=== PATIENT | female | born 1995 | race Caucasian/White ===

== ENCOUNTER → 2021-02-18 14:15 | Outpatient (CLI) | payer SELFPAY | PROVIDERS: Visit Provider Obstetrics & Gynecology | DX: Z12.4 Encounter for screening for malignant neoplasm of cervix (principal) | CPT/HCPCS: 88175; G0145 ==

== ENCOUNTER 2021-12-09 09:30 | Outpatient (CLI) | payer SELFPAY ==
[2021-12-11 22:07] LABS: Chlamydia By Nucleic Acid AMP Negative (Negative)
[2021-12-12 09:29] LABS: Gonococcus By Nucleic Acid AMP Negative (Negative)
== END 2021-12-09 23:59 | disposition home or self-care (01) ==
LOC: LABSPEC 12-10 08:58
PROVIDERS: Visit Provider Obstetrics & Gynecology
DX: Z34.81 Encounter for supervision of other normal pregnancy, first trimester (principal)
CPT/HCPCS: 87491; 87591

== ENCOUNTER → 2022-02-04 | Outpatient (CLI) | payer SELFPAY ==
[2022-02-04 17:15] LABS: Absolute Lymphocyte Count 2.51 X10^3/uL (0.83-4.51); Absolute Neutrophil Count 4.3 X10^3/uL (2.0-7.7); Basophil# 0.05 X10^3/uL; Basophil% 0.7 % (0-1); Eosinophil# 0.04 X10^3/uL; Eosinophils% 0.5 % (0-5); Hematocrit 37.6 % (37-47); Lymphocyte # 2.51 X10^3/ul (0.83-4.51); Lymphocyte % 34.3 % (19-41); Mean Corp Hgb Conc 34.6 g/dL (32-36); Mean Corpuscular Hgb 30.5 pg (27.0-32.0); Mean Corpuscular Volume 88.3 fL (81-99); Mean Platelet Vol. 10.2 fl (6.2-12.0); Monocyte# 0.42 X10^3/uL; Monocyte% 5.7 % (0-10); NRBC Flagged by Analyzer 0 % (0-5); Neutrophil # 4.28 X10^3/uL (2.7-7.7); Neutrophil % 58.5 % (47-70); Platelet Count 241 K/mm3 (150-450); RBC Distribution Width CV 12.7 % (11.6-14.6); Red Blood Count 4.26 M/mm3 (4.2-5.4); White Blood Count 7.3 K/mm3 (4.4-11.0)
[2022-02-04 17:43] LABS: Color, Urine Yellow (Yellow); Glucose, Dipstick Normal (Normal); Ketone-Dipstick Negative (Negative); Leukocyte Esterase-Dipstick 25 /ul (Negative); Nitrite-Dipstick Negative (Negative); Occult Blood-Urine 10 /ul (Negative); Protein-Dipstick Negative (Negative); Urine Bilirubin Dipstick Negative (Negative); Urine Clarity Clear (Clear); Urine Urobilinogen Normal (Normal)
[2022-02-04 17:47] LABS: Amphetamine Urine VISTA NEGATIVE (<1000 ng/mL); Barbiturate Urine VISTA NEGATIVE (< 200 ng/mL); Benzodiazepine Urine VISTA NEGATIVE (< 200 ng/mL); Cocaine Urine VISTA NEGATIVE (< 300 ng/mL); Ecstacy Urine VISTA NEGATIVE (< 500 ng/mL); Methadone Urine VISTA NEGATIVE (< 300 ng/mL); PCP Urine VISTA NEGATIVE (< 25 ng/mL); THC Urine VISTA NEGATIVE (< 50 ng/mL); Vista UDS pH Range 7
[2022-02-04 17:54] LABS: Thyroid Stim Hormone (TSH) 1.79 uIU/mL (0.358-3.74)
[2022-02-05 08:52] LABS: HIV - WCH Non-Reactive (Nonreactive); Hepatitis B Surface Antigen Non-Reactive (Nonreactive); Hepatitis C Antibody Non-Reactive (Nonreactive); Rubella IgG Reactive (Nonreactive); Syphilis Antibodies Non-reactive
== END | disposition home or self-care (01) ==
LOC: WOBLAB 16:07
PROVIDERS: Visit Provider Obstetrics & Gynecology
DX: Z34.81 Encounter for supervision of other normal pregnancy, first trimester (principal)
CPT/HCPCS: 36415; 80307; 81002; 84443; 85025; 86703; 86762; 86780; 86803; 87086; 87340

== ENCOUNTER → 2022-04-28 | Outpatient (CLI) | payer SELFPAY ==
[2022-04-28 11:58] LABS: Glucose Challenge Gest 1H 50g 87 mg/dL (70-140); Hematocrit 37.8 % (37-47); Hemoglobin 12.3 g/dL (12.0-15.0); Mean Corp Hgb Conc 32.5 g/dL (32-36); Mean Corpuscular Hgb 30.8 pg (27.0-32.0); Mean Corpuscular Volume 94.5 fL (81-99); Mean Platelet Vol. 10.4 fl (6.2-12.0); Platelet Count 255 K/mm3 (150-450); RBC Distribution Width CV 12.8 % (11.6-14.6); RBC Distribution Width SD 44.1 fl (35.1-43.9)
== END | disposition home or self-care (01) ==
PROVIDERS: Visit Provider Student in an Organized Health Care Education/Training Program
DX: Z34.83 Encounter for supervision of other normal pregnancy, third trimester (principal)
CPT/HCPCS: 36415; 82950; 85027

== ENCOUNTER → 2022-06-23 | Outpatient (CLI) | payer SELFPAY | END | disposition home or self-care (01) | LOC: LABSPEC 12:12 | PROVIDERS: Visit Provider Student in an Organized Health Care Education/Training Program | DX: Z36.85 Encounter for antenatal screening for Streptococcus B (principal) | CPT/HCPCS: 87081 ==

== ENCOUNTER 2022-07-17 04:08 | Inpatient (IN) | payer SELFPAY ==
[2022-07-17] VITALS (54 sets, daily range): BP systolic 101–142; BP diastolic 58–104; PULSE 64–190; RESP 16; TEMP 36.6–37.2; O2SAT 78–100; BMI 14.2
[2022-07-17] MEDS: Lactated Ringers 1,000 ML 50 ML IV (04:20)
[2022-07-17 04:30] LABS: Absolute Lymphocyte Count 1.87 X10^3/uL (0.83-4.51); Absolute Neutrophil Count 7.3 X10^3/uL (2.0-7.7); Basophil# 0.04 X10^3/uL; Basophil% 0.4 % (0-1); Eosinophil# 0.04 X10^3/uL; Eosinophils% 0.4 % (0-5); Hematocrit 39.1 % (37-47); Hemoglobin 12.9 g/dL (12.0-15.0); Lymphocyte # 1.87 X10^3/ul (0.83-4.51); Lymphocyte % 18.9 % (19-41); Mean Corpuscular Hgb 30.9 pg (27.0-32.0); Mean Corpuscular Volume 93.5 fL (81-99); Mean Platelet Vol. 10.8 fl (6.2-12.0); Monocyte# 0.57 X10^3/uL; Monocyte% 5.8 % (0-10); NRBC Flagged by Analyzer 0 % (0-5); Neutrophil # 7.33 X10^3/uL (2.7-7.7); Neutrophil % 74.1 % (47-70); Platelet Count 189 K/mm3 (150-450); RBC Distribution Width CV 12.9 % (11.6-14.6); RBC Distribution Width SD 44.3 fl (35.1-43.9); Red Blood Count 4.18 M/mm3 (4.2-5.4); White Blood Count 9.9 K/mm3 (4.4-11.0)
--- NOTE | 2022-07-17 05:49 | PCM.HP.BLA ---
History and Physical Date of Admission: 07/17/22 Chief complaint: Contractions History of present illness: 26-year-old G1, P0 at 40 weeks and 2 days with ABDI 07/16/2022 arrives with contractions. Denies headache, visual changes, chest pain, shortness of breath, nausea vomit, right upper quadrant pain. Patient states good movement. Obstetric history: G1: Current Past medical history: None Medications: vitamin Past surgical history: Patellar realignment, cholecystectomy, wisdom teeth extraction Allergies: No known drug allergies Family history: Denies history DVT or PE Social history: Denies smoking, alcohol use, drug use Physical exam: Vitals: Blood pressure 121/75 pulse 81 General: Normal-appearing no acute distress HEENT: Normocephalic/atraumatic no cervical of adenopathy Cardiac/respiratory: No use accessory muscles, nonlabored breathing Abdomen: Soft, nontender, gravid Extremities: No peripheral edema normal peripheral pulses Psych: Normal affect normal demeanor nonpressured speech Labs: White blood cell count 9.9 hemoglobin 12.9 hematocrit 39.1% platelets 189 Assessment plan: 26-year-old at 40 weeks and 2 days arrives in labor Admit labor and delivery CEFM GBS negative Routine orders Anesthesia to see
[2022-07-17] MEDS: LACTATED RINGERS 500 ML 999 ML IV (06:20)
[2022-07-17] MEDS: fentaNYL-bupivacaine (epidural) 100 ML BAG EPIDURAL (07:44)
[2022-07-17] MEDS: Ondansetron 4 MG/2 ML Vial IV (10:48)
[2022-07-17] MEDS: 0.9% Saline Lock 10 ML Syringe IV (10:50)
[2022-07-17] MEDS: Oxytocin 30 units/NS 500 ml 30 UNITS/500 ML IV.SOLN 334 UNITS IV (11:50)
--- NOTE | 2022-07-17 12:11 | OP.PCM_ITS ---
Vaginal Delivery Findings Description of Procedure: Precipitous delivery, vaginal delivery of a viable male , vertex. Head and shoulders delivered with ease. Cord cut and clamped. Baby handed off to patient. Placenta delivered via cord traction and fundal massage. Second- degree midline perineal laceration and bilateral labial lacerations noted and repaired in typical fashion. EBL 400 cc Apgars 8/9
[2022-07-17] MEDS: Ibuprofen 600 MG Tablet PO (19:26)
[2022-07-17] MEDS: Senna/Docusate Sodium 1 Tablet PO (19:26)
[2022-07-18] MEDS: Acetaminophen 500 MG Tablet 1000 MG PO (03:20)
[2022-07-18 03:41] VITALS: BP 122/79; PULSE 93; RESP 16; TEMP 36.8
[2022-07-18 08:40] VITALS: BP 113/71; PULSE 95; RESP 18; TEMP 36.9
--- NOTE | 2022-07-18 10:53 | PN.OBGYN_ITS ---
Subjective Subjective No overnight complaints Objective Data Objective Data Vital Signs: Vital Signs Temp Pulse Resp BP Pulse Ox O2 Del Method 98.4 F 95 18 113/71 98 Room Air 07/18/22 08:40 07/18/22 08:40 07/18/22 08:40 07/18/22 08:40 07/17/22 14:35 07/18/22 03:41 Oxygen Delivery Method Room Air Weight: 182 lb Body Mass Index (BMI) 14.2 Intake & Output: Intake and Output for Last 24 Hours 07/16/22 07/17/22 07/18/22 23:59 23:59 23:59 Intake Total 2000.0 / 2000.0 Output Total 1800 / 1800 Balance 200.0 / 200.0 Lab / Micro Data Result Diagrams: 07/17/22 04:20 Micro: Microbiology 07/17/22 04:20 Nasal Secretion SARS-CoV-2 Antigen (Rapid) - Final Physical Exam Const alert, oriented x3, no apparent distress, average body habitus, healthy appearing and well nourished HEENT normocephalic and moist oral mucous membranes Eyes PERRL Resp normal respiratory effort, no retractions and no use of accessory muscles GI GI Narrative: Soft, nontender, uterus firm and below umbilicus Extremity normal to inspection, full ROM and no clubbing, cyanosis or edema Neuro moves all extremities and no focal motor deficits Psych mental status grossly normal, affect normal, speech normal and activity/motor behavior normal Assessment & Plan (1) Vaginal delivery: PLAN: day 1. Breast-feeding. Pain well controlled. Okay to disch arge home if okay with personal lines insurance agent
--- NOTE | 2022-07-18 10:53 | DCINST_ITS ---
Discharge Instructions Diet Discharge Diet: No restrictions Activity Discharge Activity: Return to Normal Activity, May Drive and May Shower May resume sexual activity in: 4-6 weeks Weight Bearing Status: Weight bearing as tolerated Dressing / Incision Call your doctor if your incision/area has: Continuous Slow Oozing and Foul Smelling Discharge Call your doctor if you observe: Fever of 101 or Higher, Shortness of breath and Chest pain Follow Up Care Please Follow Up With: Lino Fong MD When: 4 to 6 weeks Test Results: Test results from this visit will be discussed in further detail at your follow- up appointment, if applicable. Discharge Plan Admission Admit Date/Time: 07/17/22 04:08 Attending Provider: Lino Fong Primary Care Provider: Care Physician,No Primary Discharge Orders/Prescriptions Prescriptions: No Action 1 mg Tablet 1 tab PO DAILY Referrals / Follow Up: Care Physician,No Primary [Primary Care Provider] - Disposition Discharge Orders: Discharge Patient (Routine); Ordered 07/18/22 Ordered By: Dr. Lino Fong
[2022-07-18 13:00] VITALS: BP 118/79; PULSE 109; RESP 18; TEMP 37
[2022-07-18] MEDS: Ibuprofen 600 MG Tablet PO (14:21)
--- NOTE | 2022-07-22 11:25 | NURSING ---
Follow up call complete , patient reports she is doing really well. is going good, denies need for services, follow up with ped again at 2 weeks for weight check. Bleeding minimal, no pain. Very satisfied with care. Discussed hearing screen follow up and is going to call [facility] because [facility]'s manager shipping was broken- [place] specialist notified.
== END 2022-07-18 14:30 | disposition home or self-care (01) | DRG 807 ==
LOC: WPOUT 04:10 → WP 04:10
PROVIDERS: Admitting Provider Obstetrics & Gynecology; Visit Provider Obstetrics & Gynecology
DX: O62.3 Precipitate labor (principal); Z37.0 Single live birth; O70.1 Second degree perineal laceration during delivery; Z3A.40 40 weeks gestation of pregnancy
CPT/HCPCS: 59025; 59050; 85025; 86850; 86900; 86901; 87426; 99218; J7120; A4216; G0378; J2405

== ENCOUNTER → 2023-11-23 | Outpatient (CLI) | payer OTHER, SELFPAY ==
--- OUTSIDE RECORDS SUMMARY | 2023-11-23 19:50 | XMS RPT_ITS | CCD ---
Author Name Unknown Address [email or web address] [place] [address] Organization [facility] Care Team Providers Care Cash Poster Name Role Phone GRAYSON FLEMING MD Primary Care Unavailable GRAYSON FLEMING MD Attending Unavailable NARENDRA HOPKINS Consulting Unavailable GRAYSON FLEMING MD Admitting Unavailable PROVIDER, UNKNOWN Consulting Unavailable PROVIDER, UNKNOWN Consulting Unavailable PROVIDER, UNKNOWN Consulting Unavailable Encounters Encounter Date Encounter Type Care Provider Facility Start: 12-10-2020 End: 12-10-2020 Patient encounter procedure [facility] Summary Purpose Family History No Family History Records Found Advance Directives No Advanced Directives Records Found Additional Source Comments INFORMATION SOURCE (unrecogn ized section and content) FOR RECORDS PERTAINING TO PATIENTS WHO ARE OR HAVE BEEN ENROLLED IN A CHEMICAL DEPENDENCY/SUBSTANCEABUSE PROGRAM, SOME INFORMATION MAY BE OMITTED. This clinical summary was aggregated from multiple sources. Caution should be exercised in using it in the provision of clinical care. This summary normalizes information from multiple sources, and as a consequence, information in this document may materially change the coding, format and clinical context of patient data. In addition, data may be omitted in some cases. CLINICAL DECISIONS SHOULD BE BASED ON THE PRIMARY CLINICAL RECORDS. [employer] provides no warranty or guarantee of the accuracy or completeness of information in this document.
[2023-11-26 05:08] LABS: Chlamydia By Nucleic Acid AMP Negative (Negative); Gonococcus By Nucleic Acid AMP Negative (Negative)
[2023-11-29 18:28] LABS: HPV Reflexed? NOT INDICATED
== END | disposition home or self-care (01) ==
LOC: LABSPEC 16:25
PROVIDERS: Obstetrics & Gynecology; Referring Provider Advanced Practice Midwife; Visit Provider Advanced Practice Midwife
DX: Z34.90 Encounter for supervision of normal pregnancy, unspecified, unspecified trimester (principal)
CPT/HCPCS: 87086; 87491; 87591; 88175; G0145

== ENCOUNTER 2023-11-26 09:00 | Day surgery (SDC) | payer OTHER, SELFPAY ==
--- NOTE | 2023-11-25 17:34 | HP.PCM_ITS ---
History and Physical Date of Admission: 11/26/23 Vital Signs 11/23/2413:14 11/25/2412:59 11/25/2413:06 Height 5 ft 4 in 5 ft 4 in 5 ft 4 in Weight: 153 lb BMI 26.2 BP 113/68 Intake Visit Reasons: OB rescan per Medication Assistant Required: No Is patient in pain?: No Allergies No Known Allergies Allergy (Verified 11/25/23 14:05) Medications [id number]-FA 1 mg tablet 1 tab PO DAILY 07/17/22 [History Confirmed 11/25/23] docosahexaenoic acid 200 mg capsule ( DHA) mg PO 11/19/23 [History Confirmed 11/25/23] Last Menstrual Period: 09/22/23 Zika: Zika virus screening: Negative : No PFSH PFSH Medical History Vaginal delivery Surgical History H/O left knee surgery History of cholecystectomy [place] teeth extracted Family History Grandmother Cancer, Onset Age: 70 Maternal - ovarian Social History adopted: No household members: spouse and children number of children: 1 current occupational status: employed current occupation: [employer] current occupational exposures/hazards: No pets and animals: No history of recent travel: No sexually active: Yes Smoking Status: Never smoker alcohol intake: current alcohol intake frequency: a few times a week details: not while substance use type: does not use well-balanced diet: about half the time caffeine: Yes Type: coffee Number of servings: 1 eating out: 1-3 times/week during the past year weight has: remained stable what type of physical activity do you participate in: none ike/quaker: Gnosticist seatbelt use: always do you feel safe at home: Yes additional social history: [employer] History 2 Elective abortions Hx Para 1 Spontaneous abortions Hx # Term Pregnancies Ectopic pregnancies Hx # Pregnancies Multiple births # of living children 1 Past Pregnancies Del. Date Name GA/Weeks Outcome Route Bth Weight Gen Labor Lgth Anesthesia Del Locatn Provider FOB 07/17/22 [place] 40 live - full term 8#1oz Male 1 2 hrs epidural [facility] Lino Fong [place] HPI OB rescan per SM Details: HEATHER MADRID is a 28 year old who presents for routine OB visit. OB Visit ABDI Calculator Estimated Delivery Date Method Current WG Current Estimate 06/28/24 LMP (Certain) 9w 1d Expected Delivery Route/Plan Labor Preferences- CB/BF classes: [] labor support person: [] labor intervention preferences: [] pain management options preferred: [] cut cord/dad catch: [] : [] PP control planned: [] discussed possible routes of delivery and associated risks: [] special requests: [] Specific Issue/Plans Covid status: [] Flu vaccine: [] Tdap vaccine: [] Rhogam: [] LARC form signed: [] Problem list reviewed and updated with the most current plan of care details and appropriate orders placed. Relevant counseling for the gestational age provided. Continue routine care and follow up unless otherwise noted in visit notes/problem list details Initial Weight: Not Recorded Date -?-?-?-?-?-?-?-?-?-?-?-?- EGA Weight BP Urine Prot -?-?-?-?-?-?-?-?-?-?-?-?- Glucose FHR FuHt Pres Dilation -?-?-?-?-?-?-?-?-?-?-?-?- Effaced St Visit Note 11/23/23-?-?-?-?-?-?-?-?-?-?-?-?- 8w 6d 156 lb 4 oz 126/87 -?-?-?-?-?-?-?-?-?-?-?-?- -?-?-?-?-?-?-?-?-?-?-?-?- kw-CRL not cons with dates. 4mm. repeat scan on thurs with SM. kw-CRL not cons with dates. 4mm no pole. repeat scan on thurs with SM. 11/25/23-?-?-?-?-?-?-?-?-?-?-?-?- 9w 1d 153 lb 113/68 -?-?-?-?-?-?-?-?-?-?-?-?- -?-?-?-?-?-?-?-?-?-?-?-?- 4.7mm no FHT seen ACOG First Trimester First Trimester: Desire for , Alcohol, Tobacco Cessation, Illicit/Recreational Drug/Substance Use, Intimate Partner Violence, Barriers to care, Anticipated Course of Care, Use of Any medications, Sexual activity, Exercise, Dental Care, Sauna/Hot tub use, Seat Belt use, Childbirth classes/Hospital facilities, , Travel, Indications for Ultrasound and Screening for Aneuploidy; Discussed Unstable Housing, Discussed Comm unication Barriers, Discussed Environmental/Work Hazards and Discussed Toxoplasmosis Precations Second Trimester Second Trimester: Signs and Symptoms of Labor, Selecting a care provider, Reproductive Life Planning & Contreception, Care Planning, Depression/Anxiety and Intimate Partner Violence; Discussed Tobacco Cessation Third Trimester Third Trimester: Pain Management Plans, Labor support person(s), Immediate Larc, Signs and Symptoms of Preeclampsia, Feeding Yes , [place] Education and Family Medical Leave or Disability Forms ROS Const Reports as per HPI and Denies fever(s) ENT Reports system reviewed and no additional complaints, except as documented Card Reports system reviewed and no additional complaints, except as documented Resp Reports system reviewed and no additional complaints, except as documented GI Reports as per HPI Reports as per HPI and Reports abnormal vaginal bleeding Musc Reports system reviewed and no additional complaints, except as documented Skin/Breast Reports system reviewed and no additional complaints, except as documented Neuro Yes system reviewed and no additional complaints, except as documented Endo Reports system reviewed and no additional complaints, except as documented Exam Const General: healthy appearing, comfortable and no acute distress [facility] Head: normal to inspection and normocephalic Neck Neck: no lymphadenopathy noted Thyroid: thyroid normal Chest Chest palpation & inspection: normal inspection of the chest Resp Effort & Inspection: normal respiratory effort Cardio Rate: regular rate Rhythm: regular rhythm GI Inspection: normal to inspection Palpation: soft and nontender External Female Exam: normal external appearance Speculum Exam - Vagina: normal appearance of the vagina and vaginal bleeding Bimanual Exam- Vagina & Uterus: uterine shape normal and non-tender OB/External & Speculum: vaginal bleeding Speculum Exam: vaginal bleeding Skin General: no rashes or lesions noted Neuro General: no focal motor deficits Extrem General: normal to inspection and no pedal edema Psych Appearance: grossly normal Coding Level of Care Code OB Routine Diagnoses Missed O02.1 Assessment and Plan Assessment and Plan (1) Missed : Status: Acute Comment: measuring 4.7 mm no FHT seen. 6 weeks when supposed to be over 8. discussed options plan suction d and c. Orders: Orders POC Urinalysis 2 Dip (Clinic) Today Plan After discussing the patient's diagnosis and treatment plan options, patient wishes to proceed with surgical management. I have discussed with the patient the risks, benefits, and alternatives of the procedure which include but are not limited to risks of anesthesia, bleeding, infection, possible damage to bowel, bladder, or surrounding vasculature which could lead to additional surgery to evaluate any complications. Patient agrees to procedure and wishes to proceed. ACOG/uptodate references given for additional information regarding procedure.
[2023-11-26] VITALS (7 sets, daily range): BP systolic 100–128; BP diastolic 60–83; PULSE 66–90; RESP 16–18; TEMP 36.3–37.3; O2SAT 98–100; BMI 26.1
--- OUTSIDE RECORDS SUMMARY | 2023-11-26 09:17 | XMS RPT_ITS | CCD ---
Author Name Unknown Address [address] [place] [address] Organization [facility] Care Team Providers Care Extruding Press Operator Name Role Phone GRAYSON FLEMING MD Primary Care Unavailable GRAYSON FLEMING MD Attending Unavailable NARENDRA HOPKINS Consulting Unavailable GRAYSON FLEMING MD Admitting Unavailable PROVIDER, UNKNOWN Consulting Unavailable PROVIDER, UNKNOWN Consulting Unavailable PROVIDER, UNKNOWN Consulting Unavailable Encounters Encounter Date Encounter Type Care Provider Facility Start: 12-10-2020 End: 12-10-2020 [facility] Summary Purpose Family History No Family [...] BE BASED ON THE PRIMARY CLINICAL RECORDS. [employer] provides no warranty or guarantee of the accuracy or completeness of information in this document.
[2023-11-26 10:03] LABS: Hematocrit 42.9 % (37-47); Mean Corp Hgb Conc 32.6 g/dL (32-36); Mean Corpuscular Hgb 29.2 pg (27.0-32.0); Mean Corpuscular Volume 89.4 fL (81-99); Mean Platelet Vol. 9.6 fl (6.2-12.0); Platelet Count 309 K/mm3 (150-450); RBC Distribution Width CV 12.2 % (11.6-14.6); RBC Distribution Width SD 39.8 fl (35.1-43.9); White Blood Count 6.2 K/mm3 (4.4-11.0)
[2023-11-26] MEDS: Doxycycline 100 MG CAPSULE PO (10:05)
[2023-11-26] MEDS: Lactated Ringers 1,000 ML 15 ML IV (10:05)
--- NOTE | 2023-11-26 11:30 | POC_PTH ---
PATHOLOGY RESULTS PATIENT: HEATHER MADRID LOC: [facility] U#:[id number] AGE/SX: 28/F ROOM: RE11/26/[address]: Dr. Tiff Manzo MD : 1995 BED: DIS: 11/26/2023 SPEC #: [id number] RECD: 11/26/23 12:56 STATUS: LOLY PAGAN #: [id number] SINGH: 11/26/23 11:[address]: Tiff Manzo DEPT: SURGICAL PATHOLOGY RECD BY: Yeimy Chang ENTERED: 11/26/23 13:11 SP TYPE: PROD CONC OTHR DR: No Primary Care Phys Tissues: Product of conception, NOS Procedures: Surgery Specimen Level IV HEADER OPERATION: Suction dilation and curettage PRE-OP DIAGNOSIS: Missed TISSUE SUBMITTED: Products of conception MICROSCOPIC DIAGNOSIS Products of conception, suction dilation and curettage: [place], gestational endometrium and immature chorionic villi (products of conception), clinically incomplete . See comment. ALEC:lc 11/29/2023 COMMENT A few of the villi show hydropic changes. Significant trophoblastic hyperplasia is not seen. Clinical correlation and appropriate follow up are necessary. MICROSCOPIC DESCRIPTION Slides are reviewed. GROSS DESCRIPTION Received in fixative is one container labeled with the patient's name and designated products of conception. The specimen consists of multiple irregular fragments of pink soft tissue that in aggregate measure 7.0 x 6.0 x 1.5 cm. No tissue is identified. Manager Development tissue is submitted in two cassettes. / ALEC:lc 11/26/2023 TC:5 CPT: 82641
[2023-11-26] MEDS: Lidocaine 1% (20 ml mdv) 20 ML Vial (12:15)
--- NOTE | 2023-11-26 12:42 | OP.PCM_ITS ---
Problems Associated Problem List Diagnoses (1) Missed : Report of Operation Date of Procedure: 11/26/23 Pre-Operative Diagnosis: see problem list Post-Operative Diagnosis: same Surgery/Procedure Performed:: Suction dilation and curettage Description of Surgical Findings:: no FHT present, Nonviable 6-8 weeks Surgeon: Tiff Manzo cake batter mixer: None Type of Anesthesia: Local MAC Special Medications: none Specimen's removed: POC Drains: none Estimated Blood Loss (mL): 50 Fluids Replaced: crystalloid Description of Procedure: Patient was taken to the operating room and placed under MAC local anesthesia. She was prepped and draped in the normal sterile fashion the dorsal lithotomy position. Bladder was drained of clear urine and anterior lip of the cervix was grasped and the uterus sounded to 9. Cervix was progressively dilated to allow passage of a 9mm suction curette. Progressive passes were made removing the re tained products of conception without complication. Sharp curettage confirmed complete removal of the retained products. All instruments were removed from the vagina and excellent hemostasis was noted and the patient was taken to recovery in stable condition. Grafts/Implants Used: none Procedure Start Time: 11:55 Procedure Stop Time: 12:01 Complications none Admit VTE Documentation VTE Present on Admission: No VTE Mechan Device Prophylaxis: SCD's Procedures Urinary/Genital 52xxx-59xxx: 84115 Trmt of incomplete Ab, any TM
--- NOTE | 2023-11-26 12:47 | DCINST_ITS ---
Discharge Instructions Diet Discharge Diet: No restrictions Activity Discharge Activity: Return to Normal Activity, May Shower and May Take a Tub Bath (after 1 week) May resume sexual activity in: 1-2 weeks Weight Bearing Status: Weight bearing as tolerated Lifting Restrictions: none Dressing / Incision Call your doctor if you observe: Fever of 101 or Higher, Using more than 1 pad per hour, Shortness of breath and Uncontrolled pain Follow Up Care Please Follow Up With: Tiff Manzo MD When: Call [phone] to schedule appointment. Test Results: Test results from this visit will be discussed in further detail at your follow- up appointment, if applicable. Discharge Plan Admission Attending Provider: Tiff Manzo Primary Care Provider: Care Physician,Kimberly Primary Discharge Orders/Prescriptions Prescriptions: No Action DHA 200 mg capsule PO 1 mg Tablet 1 tab PO DAILY Referrals / Follow Up: Care Physician,No Primary [Primary Care Provider] - Disposition Disposition (needs filled in before D/C Order can be placed): Home, Self Care
== END 2023-11-26 13:21 | disposition home or self-care (01) ==
LOC: SDC 09:01 → AC 09:02
PROVIDERS: Referring Provider Obstetrics & Gynecology; Visit Provider Obstetrics & Gynecology
PROC: (CPT 59812; principal; 2023-11-26 11:15)
DX: O02.1 Missed abortion (principal)
CPT/HCPCS: 59812; 01965; 85027; 86850; 86900; 86901; 88305; J7120; J2405

== ENCOUNTER → 2024-02-01 | Outpatient (CLI) | payer OTHER, SELFPAY ==
[2024-02-01 10:59] LABS: hCG Titer Quant., Serum 882 mIU/mL (1-3)
== END | disposition home or self-care (01) ==
LOC: PAVLAB 09:56
PROVIDERS: Referring Provider Obstetrics & Gynecology; Visit Provider Obstetrics & Gynecology
DX: O02.1 Missed abortion (principal)
CPT/HCPCS: 36415; 84702

== ENCOUNTER → 2024-02-03 | Outpatient (CLI) | payer OTHER, SELFPAY ==
[2024-02-03 10:48] LABS: hCG Titer Quant., Serum 1264 mIU/mL (1-3)
== END | disposition home or self-care (01) ==
LOC: PAVLAB 09:31
PROVIDERS: Referring Provider Obstetrics & Gynecology; Visit Provider Obstetrics & Gynecology
DX: O02.1 Missed abortion (principal)
CPT/HCPCS: 36415; 84702

== ENCOUNTER → 2024-02-05 | Outpatient (CLI) | payer OTHER, SELFPAY ==
[2024-02-05 11:23] LABS: hCG Titer Quant., Serum 1744 mIU/mL (1-3)
== END | disposition home or self-care (01) ==
PROVIDERS: Referring Provider Obstetrics & Gynecology; Visit Provider Obstetrics & Gynecology
DX: Z34.90 Encounter for supervision of normal pregnancy, unspecified, unspecified trimester (principal)
CPT/HCPCS: 84702

== ENCOUNTER → 2024-02-08 | Outpatient (CLI) | payer OTHER, SELFPAY ==
--- NOTE | 2024-02-08 15:12 | US_ITS ---
EXAM: US , TRANSVAGINAL CLINICAL INDICATION: Confirm IUP TECHNIQUE: Real-time endovaginal obstetrical ultrasound of the maternal pelvis and a first trimester with image documentation. Transvaginal imaging was used for better evaluation of the fetus and adnexa. COMPARISON: No relevant prior studies available. FINDINGS: GESTATION: 9 mm intrauterine gestational saclike structure identified centrally within the uterus without identifiable yolk sac or embryo. Subcentimeter complex collection adjacent to the suspected gestational sac may represent implantation bleed. PLACENTA/AMNIOTIC FLUID: Cannot be adequately evaluated due to the early gestational age. UTERUS/CERVIX: Normal. Anteverted. No uterine mass. OVARIES: Normal. No mass. The right ovary measures 3.1 x 2.8 x 2.2 cm. The left ovary measures 3.1 x 2.2 x 2.0 cm. FREE FLUID: Physiological amount of free fluid noted within the pelvis. US/Transvaginal w/Preg US IMPRESSION: Question early intrauterine gestation. Recommend follow-up pelvic ultrasound in 7-10 days to determine viability Electronically Signed: Sang Branch MD at 16:41 EDT ,
== END | disposition home or self-care (01) ==
LOC: US 15:10
PROVIDERS: Referring Provider Obstetrics & Gynecology; Visit Provider Obstetrics & Gynecology
DX: Z34.90 Encounter for supervision of normal pregnancy, unspecified, unspecified trimester (principal)
CPT/HCPCS: 76817

== ENCOUNTER → 2024-02-22 | Outpatient (CLI) | payer OTHER, SELFPAY ==
[2024-02-25 02:07] LABS: Anti-Cardiolipin Ab, IgG, Qn < 9 GPL U/mL (0-14); Anti-Cardiolipin Ab, IgM, Qn 12 MPL U/mL (0-12); Beta-2-Glycoprotein I IgA <9 (0-25); Beta-2-Glycoprotein I IgG <9 (0-20); Beta-2-Glycoprotein I IgM <9 (0-32); Dilute Prothrombin Time (dPT) 37.8 sec (0.0-47.6); Dilute Russell Viper Venom 33.9 sec (0.0-47.0); Interpretation Comment: (.); PTT-LA 38.8 sec (0.0-43.5); Thrombin Time 16.6 sec (0.0-23.0); dPT Confirm Ratio 1.09 Ratio (0.00-1.34)
== END | disposition home or self-care (01) ==
LOC: PAVLAB 09:29
PROVIDERS: Referring Provider Obstetrics & Gynecology; Visit Provider Obstetrics & Gynecology
DX: O09.299 Supervision of pregnancy with other poor reproductive or obstetric history, unspecified trimester (principal); N96 Recurrent pregnancy loss; Z3A.00 Weeks of gestation of pregnancy not specified; O99.891 Other specified diseases and conditions complicating pregnancy
CPT/HCPCS: 36415; 86146; 86147; 86850; 86900; 86901

== ENCOUNTER → 2024-06-13 | Outpatient (CLI) | payer OTHER, SELFPAY ==
[2024-06-13 10:29] LABS: hCG Titer Quant., Serum 245 mIU/mL (1-3)
== END | disposition home or self-care (01) ==
LOC: PAVLAB 09:40
PROVIDERS: Referring Provider Obstetrics & Gynecology; Visit Provider Obstetrics & Gynecology
DX: N91.2 Amenorrhea, unspecified (principal)
CPT/HCPCS: 36415; 84702

== ENCOUNTER → 2024-06-15 | Outpatient (CLI) | payer OTHER, SELFPAY ==
[2024-06-15 10:41] LABS: hCG Titer Quant., Serum 662 mIU/mL (1-3)
== END | disposition home or self-care (01) ==
LOC: PAVLAB 09:57
PROVIDERS: Referring Provider Obstetrics & Gynecology; Visit Provider Obstetrics & Gynecology
DX: N91.2 Amenorrhea, unspecified (principal)
CPT/HCPCS: 36415; 84702

== ENCOUNTER → 2024-07-04 | Outpatient (CLI) | payer OTHER, SELFPAY ==
--- NOTE | 2024-07-04 09:09 | US_ITS ---
INDICATION: viability COMPARISON: 02/22/2024 OB ultrasound. FINDINGS: 51 grayscale ultrasound images obtained transvaginally demonstrate single live intrauterine measuring at 7 weeks +3 days by crown-rump length. This gives estimated date of delivery by current ultrasound of 02/17/2025. Cinematic series provided. heart rate 135 bpm. Yolk sac is identified. Adequate amniotic fluid for gestational age. Placenta cannot be definitively identified at this gestational age. Uterine myometrium is unremarkable. Bilateral ovaries are unremarkable. No significant free fluid. US/Transvaginal w/Preg US IMPRESSION: Single live intrauterine measuring at 7 weeks +3 days by crown-rump length. This gives estimated date of delivery by current ultrasound of 02/17/2025. Electronically Signed: David Soliman MD at 6:43 EDT ,
== END | disposition home or self-care (01) ==
LOC: US 09:05
PROVIDERS: Referring Provider Obstetrics & Gynecology; Visit Provider Obstetrics & Gynecology
DX: Z34.90 Encounter for supervision of normal pregnancy, unspecified, unspecified trimester (principal)
CPT/HCPCS: 76817

== ENCOUNTER → 2024-07-17 | Outpatient (CLI) | payer OTHER, SELFPAY ==
[2024-07-20 06:10] LABS: Chlamydia By Nucleic Acid AMP Negative (Negative); Gonococcus By Nucleic Acid AMP Negative (Negative)
== END | disposition home or self-care (01) ==
LOC: LABSPEC 12:09
PROVIDERS: Referring Provider Obstetrics & Gynecology; Visit Provider Obstetrics & Gynecology
DX: O09.90 Supervision of high risk pregnancy, unspecified, unspecified trimester (principal); Z3A.00 Weeks of gestation of pregnancy not specified
CPT/HCPCS: 87086; 87491; 87591

== ENCOUNTER → 2024-08-15 | Outpatient (CLI) | payer OTHER, SELFPAY ==
[2024-08-15 09:17] LABS: Absolute Lymphocyte Count 1.71 X10^3/uL (0.83-4.51); Absolute Neutrophil Count 4.8 X10^3/uL (2.0-7.7); Basophil# 0.03 X10^3/uL; Basophil% 0.4 % (0-1); Eosinophil# 0.06 X10^3/uL; Eosinophils% 0.9 % (0-5); Hematocrit 39.1 % (37-47); Lymphocyte # 1.71 X10^3/ul (0.83-4.51); Lymphocyte % 24.5 % (19-41); Mean Corp Hgb Conc 33.2 g/dL (32-36); Mean Corpuscular Hgb 29.7 pg (27.0-32.0); Mean Corpuscular Volume 89.3 fL (81-99); Mean Platelet Vol. 9.7 fl (6.2-12.0); Monocyte# 0.37 X10^3/uL; Monocyte% 5.3 % (0-10); NRBC Flagged by Analyzer 0 % (0-5); Neutrophil # 4.78 X10^3/uL (2.7-7.7); Neutrophil % 68.3 % (47-70); Platelet Count 243 K/mm3 (150-450); RBC Distribution Width CV 12.5 % (11.6-14.6); RBC Distribution Width SD 40.8 fl (35.1-43.9); Red Blood Count 4.38 M/mm3 (4.2-5.4)
[2024-08-15 10:30] LABS: HIV - WCH Non-Reactive (Nonreactive); Hepatitis B Surface Antigen Non-Reactive (Nonreactive); Hepatitis C Antibody Non-Reactive (Nonreactive); Rubella IgG Reactive (Nonreactive); Syphilis Antibodies Non-reactive
== END | disposition home or self-care (01) ==
LOC: WOBLAB 08:48
PROVIDERS: Obstetrics & Gynecology; Referring Provider Nurse Practitioner Women's Health; Visit Provider Nurse Practitioner Women's Health
DX: O09.90 Supervision of high risk pregnancy, unspecified, unspecified trimester (principal); Z3A.00 Weeks of gestation of pregnancy not specified; Z80.41 Family history of malignant neoplasm of ovary
CPT/HCPCS: 36415; 85025; 86703; 86762; 86780; 86803; 86850; 86900; 86901; 87340

== ENCOUNTER → 2024-08-16 | Outpatient (CLI) | payer OTHER, SELFPAY | END | disposition home or self-care (01) | LOC: LABSPEC 16:46 | PROVIDERS: Referring Provider Obstetrics & Gynecology; Visit Provider Obstetrics & Gynecology | DX: N89.8 Other specified noninflammatory disorders of vagina (principal) | CPT/HCPCS: 87070; 87086; 87205 ==

== ENCOUNTER → 2024-11-28 | Outpatient (CLI) | payer OTHER, SELFPAY ==
[2024-11-28 12:12] LABS: Glucose Challenge Gest 1H 50g 74 mg/dL (70-140)
[2024-11-28 12:38] LABS: Absolute Lymphocyte Count 1.45 X10^3/uL (0.83-4.51); Absolute Neutrophil Count 5.4 X10^3/uL (2.0-7.7); Basophil# 0.05 X10^3/uL; Basophil% 0.7 % (0-1); Eosinophil# 0.07 X10^3/uL; Hematocrit 37.1 % (37-47); Hemoglobin 12.5 g/dL (12.0-15.0); Lymphocyte # 1.45 X10^3/ul (0.83-4.51); Lymphocyte % 19.7 % (19-41); Mean Corp Hgb Conc 33.7 g/dL (32-36); Mean Corpuscular Volume 92.1 fL (81-99); Mean Platelet Vol. 10.4 fl (6.2-12.0); Monocyte% 5.4 % (0-10); NRBC Flagged by Analyzer 0 % (0-5); Neutrophil # 5.35 X10^3/uL (2.7-7.7); Neutrophil % 72.8 % (47-70); Platelet Count 218 K/mm3 (150-450); RBC Distribution Width CV 13.1 % (11.6-14.6); RBC Distribution Width SD 43.8 fl (35.1-43.9); Red Blood Count 4.03 M/mm3 (4.2-5.4); White Blood Count 7.4 K/mm3 (4.4-11.0)
[2024-11-29 01:11] LABS: HIV - WCH Non-Reactive (Nonreactive); Syphilis Antibodies Non-reactive
== END | disposition home or self-care (01) ==
LOC: BWCLAB 09:58
PROVIDERS: Advanced Practice Midwife; Referring Provider Nurse Practitioner Women's Health; Visit Provider Nurse Practitioner Women's Health
DX: O09.92 Supervision of high risk pregnancy, unspecified, second trimester (principal); Z13.1 Encounter for screening for diabetes mellitus; Z3A.00 Weeks of gestation of pregnancy not specified
CPT/HCPCS: 36415; 82950; 85025; 86703; 86780

== ENCOUNTER → 2025-01-25 | Outpatient (CLI) | payer OTHER, SELFPAY | END | disposition home or self-care (01) | LOC: LABSPEC 15:58 | PROVIDERS: Referring Provider Obstetrics & Gynecology; Visit Provider Obstetrics & Gynecology | DX: O09.93 Supervision of high risk pregnancy, unspecified, third trimester (principal); Z3A.00 Weeks of gestation of pregnancy not specified | CPT/HCPCS: 87081 ==

== ENCOUNTER → 2025-01-30 | Outpatient (CLI) | payer OTHER, SELFPAY ==
--- NOTE | 2025-01-30 12:16 | US_ITS ---
PROCEDURE: OB LIMITED WITH BIOMETRICS 01/30/2025 REASON FOR EXAM: SMALL FOR GESTATIONAL AGE TECHNIQUE: High resolution obstetric ultrasound performed using a 2D transducer. Standard views obtained, including biometry, anatomy survey, and Doppler studies. COMPARISON: None FINDINGS Number: 1 Position: Vertex Placental Position: Anterior and not low-lying. Placental grade 2 Placental Abnormalities: No evidence of previa. DIMENSIONS: Biparietal Diameter: 8.8 cm: 35 weeks and 3 days: 20 percentile/ Head Circumference: 32.1 cm: 36 weeks and 1 day: 9 percentile/ Abdominal Circumference: 32 cm: 35 weeks and 6 days: 29 percentile/ Femur Length: 6.6 cm: 34 weeks and 1 day: 2nd percentile/ ESTIMATED WEIGHT: 2693 g plus/-404 g ESTIMATED WEIGHT PERCENTILE (24+ weeks): 18 ESTIMATED GESTATIONAL AGE: Baseline: 37 weeks and 1 day By Ultrasound: 35 weeks and 5 days ESTIMATED DATE OF DELIVERY: Baseline: February 19, 2025 By Ultrasound: March 01, 2025 BIOPHYSICAL ASSESSMENT: Amniotic Fluid Volume: 4.4 cm Amniotic Fluid Index: 10.3 cm (8-24 cm normal range) Cardiac Motion: 131 beats per minute (average) Trunk and Limb Motion: Present. MATERNAL ANATOMY: Adnexa: Neither maternal ovary is successfully identified. US/OB Limited With Biometrics IMPRESSION: Single live intrauterine gestation with a mean gestational age of 37 weeks and 3 days. The measurements obtained today fall within normal expected range. Reading Location: [place] [address]
== END | disposition home or self-care (01) ==
LOC: US 12:14
PROVIDERS: Referring Provider Obstetrics & Gynecology; Visit Provider Obstetrics & Gynecology
DX: O36.8190 Decreased fetal movements, unspecified trimester, not applicable or unspecified (principal); P05.10 Newborn small for gestational age, unspecified weight; Z3A.00 Weeks of gestation of pregnancy not specified
CPT/HCPCS: 76816

== ENCOUNTER 2025-02-13 18:29 | Outpatient (CLI) | payer OTHER, SELFPAY ==
[2025-02-13 07:18] VITALS: BP 127/81; PULSE 83; RESP 16; TEMP 36.4
[2025-02-13 07:55] VITALS: BMI 31.9
--- NOTE | 2025-02-13 08:02 | OB.TRI.PN_ITS ---
Progress Notes Date of Service: 02/13/25 Progress Note: Patient presents for triage evaluation secondary to NST at 39.1 weeks. Was planned IOL for persistent movement and placed on hold due to unit census. FHT: 130 Moderate variability reactive no decelerations category I tracing [place]: 4-7 minute Contractions Assessment and plan: SVE /-2, Reactive NST, reassuring maternal and status patient discharged to home to follow-up tomorrow for IOL if no active labor by then. See problem list details for additional plan information. Charges/Coding Multi Select Codes Urinary/Genital Urinary/Genital CPT Codes: 75065-52 non-stress test Interp Assessment & Plan (1) Small for gestational age due to malnutrition: (2) Decreased movement affecting management of mother, antepartum: QUALIFIERS: Fetus number: single or unspecified fetus Qualified Code(s): O36.8190 - Decreased movements, unspecified trimester, not applicable or unspecified COMMENT: has anterior placenta and chronic dec fm. starting weekly nsts and may need more than this pending her report of movements. (3) Family history of ovarian cancer: COMMENT: empower screening negative (4) History of recurrent miscarriages: COMMENT: 2 early miscarriages in 2023(nov & February) Vaginal progesterone QHS until 14 wk (5) Supervision of high-risk : QUALIFIERS: Trimester: third trimester Qualified Code(s): O09.93 - Supervision of high risk , unspecified, third trimester COMMENT: PRR , ABDI 02/19/25 girl Janice Montesinos, [place] (6) : QUALIFIERS: Weeks of gestation: 38 weeks Qualified Code(s): Z3A.38 - 38 weeks gestation of COMMENT: Anatomy nl, discussed genetic & carrier testing - Declined
[2025-02-13 18:39] VITALS: TEMP 36.9
[2025-02-13 18:43] VITALS: BP 124/80; PULSE 95; RESP 17
[2025-02-13] MEDS: DiphenhydrAMINE 25 MG Capsule PO (20:29)
[2025-02-13 20:31] VITALS: BP 119/80; PULSE 78; PULSE 82; RESP 16; TEMP 37.1; O2SAT 97
[2025-02-13 23:48] VITALS: BP 119/67; PULSE 75; RESP 16; TEMP 36.4
--- NOTE | 2025-02-13 23:55 | OB.TRI.PN ---
Progress Notes Date of Service: 02/13/25 Progress Note: Patient presents for triage evaluation secondary to contractions FHT: 130 Moderate variability reactive no decelerations category I tracing [place]: mild irregular Contractions Assessment and plan: no cervical change, Reactive NST, reassuring maternal and status patient discharged to home to follow-up in am for IOL. See problem list details for additional plan information. Charges/Coding Multi Select Codes Urinary/Genital Urinary/Genital CPT Codes: 63434-57 non-stress test Interp Assessment & Plan (1) Decreased movement affecting management of mother, antepartum: QUALIFIERS: Fetus number: single or unspecified fetus Qualified Code(s): O36.8190 - Decreased movements, unspecified trimester, not applicable or unspecified COMMENT: has anterior placenta and chronic dec fm. starting weekly nsts and may need more than this pending her report of movements. (2) Family history of ovarian cancer: COMMENT: empower screening negative (3) History of recurrent miscarriages: COMMENT: 2 early miscarriages in 2023(nov & February) Vaginal progesterone QHS until 14 wk (4) Supervision of high-risk : QUALIFIERS: Trimester: third trimester Qualified Code(s): O09.93 - Supervision of high risk , unspecified, third trimester COMMENT: PRR , ABDI 02/19/25 girl Janice [place], [place] (5) : QUALIFIERS: Weeks of gestation: 38 weeks Qualified Code(s): Z3A.38 - 38 weeks gestation of COMMENT: Anatomy nl, discussed genetic & carrier testing - Declined (6) Small for gestational age due to malnutrition:
== END 2025-02-14 00:37 | disposition home or self-care (01) ==
LOC: WPOUT 18:36
PROVIDERS: Referring Provider Advanced Practice Midwife; Visit Provider Advanced Practice Midwife
DX: O36.8130 Decreased fetal movements, third trimester, not applicable or unspecified (principal); Z3A.38 38 weeks gestation of pregnancy; Z87.59 Personal history of other complications of pregnancy, childbirth and the puerperium; P05.10 Newborn small for gestational age, unspecified weight
CPT/HCPCS: 59025; 59050; 99221; G0378

== ENCOUNTER 2025-02-14 07:18 | Inpatient (IN) | payer OTHER, SELFPAY ==
[2025-02-14] VITALS (43 sets, daily range): BP systolic 102–155; BP diastolic 58–91; PULSE 76–162; RESP 16–17; TEMP 36.1–36.6; O2SAT 91–100; BMI 31.9
[2025-02-14] MEDS: Lactated Ringers 1,000 ML 50 ML IV (07:40)
[2025-02-14 07:58] LABS: Absolute Lymphocyte Count 1.58 X10^3/uL (0.83-4.51); Basophil# 0.04 X10^3/uL; Basophil% 0.5 % (0-1); Eosinophil# 0.06 X10^3/uL; Eosinophils% 0.7 % (0-5); Hemoglobin 12.3 g/dL (12.0-15.0); Lymphocyte # 1.58 X10^3/ul (0.83-4.51); Lymphocyte % 19.1 % (19-41); Mean Corp Hgb Conc 34.2 g/dL (32-36); Mean Corpuscular Hgb 31.3 pg (27.0-32.0); Mean Corpuscular Volume 91.6 fL (81-99); Mean Platelet Vol. 10.5 fl (6.2-12.0); Monocyte# 0.51 X10^3/uL; Monocyte% 6.2 % (0-10); NRBC Flagged by Analyzer 0 % (0-5); Neutrophil # 6.02 X10^3/uL (2.7-7.7); Neutrophil % 72.8 % (47-70); Platelet Count 187 K/mm3 (150-450); RBC Distribution Width CV 12.8 % (11.6-14.6); RBC Distribution Width SD 42.3 fl (35.1-43.9); Red Blood Count 3.93 M/mm3 (4.2-5.4); White Blood Count 8.3 K/mm3 (4.4-11.0)
[2025-02-14] MEDS: Oxytocin 15 Units/NS 250ml 15 UNITS/250 ML IV.SOLN 2 UNITS IV (08:04)
[2025-02-14 09:10] LABS: Syphilis Antibodies Nonreactive (Nonreactive)
--- NOTE | 2025-02-14 09:43 | HP.PCM.OB_ITS ---
HPI - General General Date of Admission: 02/14/25 HPI Narrative HEATHER MADRID, is a 29 F who presents for IOL secondary to chronic decreased movement Maternal Data Information ABDI Calculator Estimated Delivery Date Method Current WG Current Estimate 02/19/25 LMP (Certain) 39w 2d Other Estimates 02/20/25 Ultrasound #1 39w 1d PFSH PFSH Medical History Missed Vaginal delivery Home Medications ?Medication ?Instructions ?Recorded ?Last Taken ?Type vit no.164-ferrous tab PO DAILY 02/13/25 09:00 History gluconate 6 mg-folate 833.5 mcg 1 TAB DFE tablet (Nia PNV) Allergy/AdvReac Type Severity Reaction Status Date / Time No Known Allergies Allergy Verified 02/14/25 07:37 Family History Grandmother Cancer, Onset Age: 70 Maternal - ovarian Grandfather Myocardial infarction Surgical History H/O dilation and curettage History of cholecystectomy H/O left knee surgery [place] teeth extracted Social History adopted: No household members: spouse and children number of children: 1 current occupational status: employed current occupation: [employer] current occupational exposures/hazards: No pets and animals: No history of recent travel: No sexually active: Yes Smoking Status: Never smoker alcohol intake: current alcohol intake frequency: a few times a week details: not while substance use type: does not use well-balanced diet: about half the time caffeine: No eating out: 1-3 times/week during the past year weight has: remained stable what type of physical activity do you participate in: walking frequency: 3-4 times per week duration: 30-45 minutes/day ike/muslim: Oriental Orthodox seatbelt use: always do you feel safe at home: Yes additional social history: Ty - [employer] History 4 Elective abortions Hx Para 1 Spontaneous abortions 2 Hx # Term Pregnancies Ectopic pregnancies Hx # Pregnancies Multiple births # of living children 1 Past Pregnancies Del. Date Name GA/Weeks Outcome Route Bth Weight Infant Gen Labor Lgth Anesthesia Del Locatn Provider FOB 07/17/22 Truett 40 live - full term 8#1oz Male 12 hrs epid ural [facility] Lino Fong [place] 11/26/23 8 spontaneous 02/22/24 5 spontaneous Delivery Date: 11/26/23 Last Updated by: Gosia Westfall D&C Delivery Date: 02/22/24 Last Updated by: Gosia Westfall cytotec Visit Details Expected Delivery Route/Plan Labor Preferences- CB/BF classes: no labor support person: Ty labor intervention preferences: [] pain management options preferred: epidural cut cord/dad catch: yes : yes PP control planned: discussed discussed possible routes of delivery and associated risks: [] special requests: [] Plans Covid status: [] Flu vaccine:declined Tdap vaccine: declined Rhogam: NA LARC form signed: yes movement and labor precautions reviewed. Problem list reviewed and updated with the most current plan of care details and appropriate orders placed. Relevant counseling for the gestational age provided. Continue routine care and follow up unless otherwise noted in visit notes/problem list details OB Flowsheet Initial Weight: Not Recorded Date -?-?-?-?-?-?-?-?-?-?-?-?- EGA Weight BP Urine Prot -?-?-?-?-?-?-?-?-?-?-?-?- Glucose FHR FuHt Pres Dilation -?-?-?-?-?-?-?-?-?-?-?-?- Effaced St Visit Note 07/17/24 -?-?-?-?-?-?-?-?-?-?-?-?- 9w 0d 150 lb 8 oz 113/80 -?-?-?-?-?-?-?-?-?-?-?-?- 160 -?-?-?-?-?-?-?-?-?-?-?-?- SM- CRL 2.18cm c ons with LMP 08/15/24 -?-?-?-?-?-?-?-?-?-?-?-?- 13w 1d 152 lb 6 oz 123/82 Nega tive -?-?-?-?-?-?-?-?-?-?-?-?- Negative 163 -?-?-?-?-?-?-?-?-?-?-?-?- MH-No VB. Feels well. PN labs and wants empower today. Declines NIPT, carrier. Dena US to confirm FHT 08/16/24 -?-?-?-?-?-?-?-?-?-?-?-?- 13w 2d 151 lb 114/62 Negative -?-?-?-?-?-?-?-?-?-?-?-?- Negative 149 -?-?-?-?-?-?-?-?-?-?-?-?- JV- pt presents with the complaint of bright red bleeding today after insertion of her progesterone pill. She denies cramping but has some pressure. on exam cx is closed and posterior. there is a clumpy discharge that may be either yeast or the suppository residual. fht reassured with bedside us. bleeding precautions discussed. vaginitis smear collected. UA collected. 09/12/24 -?-?-?-?-?-?-?-?-?-?-?-?- 17w 1d 153 lb 111/65 Negative -?-?-?-?-?-?-?-?-?-?-?-?- Negative 145 -?-?-?-?-?-?-?-?-?-?-?-?- SM- no vb lof go od fm 10/13/24 -?-?-?-?-?-?-?-?-?-?-?-?- 21w 4d 156 lb 4 oz 118/82 Nega tive -?-?-?-?-?-?-?-?-?-?-?-?- Negative 145 -?-?-?-?-?-?-?-?-?-?-?-?- SM- no vb lof go od fm no reuglar ctx nl anatomy 11/09/24 -?-?-?-?-?-?-?-?-?-?-?-?- 25w 3d 160 lb 8 oz 114/77 Nega tive -?-?-?-?-?-?-?-?-?-?-?-?- Negative 140 25 -?-?-?-?-?-?-?-?-?-?-?-?- KW- no vb/lof/ct x. good fm. 11/28/24 -?-?-?-?-?-?-?-?-?-?-?-?- 28w 1d 165 lb 6 oz 110/78 Nega tive -?-?-?-?-?-?-?-?--?-?-?-?- Negative 143 27 -?-?-?-?-?-?-?-?-?-?-?-?- MH-No VB, LOF. G ood FM.Declines tdap. Larc done. 28 wk labs pending. 12/12/24 -?-?-?-?-?-?-?-?--?-?-?-?- 30w 1d 169 lb 110/75 -?-?-?-?-?-?-?-?-?-?-?-?- 145 30 -?-?-?-?-?-?-?-?-?-?-?-?- SM- no vb lof go od fm n oregular ctx 12/26/24 -?-?-?-?-?-?-?-?-?-?-?-?- 32w 1d 172 lb 108/72 Negative -?-?-?-?-?-?-?-?-?-?-?-?- Negative 153 31 -?-?-?-?-?-?-?-?-?-?-?-?- MH-o VB, LOF. Go od FM. Denies concerns. 01/12/25 -?-?-?-?-?-?-?-?-?-?-?-?- 34w 4d 176 lb 8 oz 120/86 Nega tive -?-?-?-?-?-?-?-?-?-?-?-?- Negative 140 33.5 -?-?-?-?-?-?-?-?-?-?-?-?- JV- pt states th at this whole she does not feel the baby move every day. She is feeling baby move today. going forward, plan for at least once a week NST and pt can cancel if feels more movement. 01/16/25 -?-?-?-?-?-?-?-?-?-?-?-?- 35w 1d 179 lb 2 oz 114/82 Nega tive -?-?-?-?-?-?-?-?-?-?-?-?- Negative 150 -?-?-?-?-?-?-?-?-?-?-?-?- MH-NST only reac tive 01/25/25 -?-?-?-?-?-?-?-?-?-?-?-?- 36w 3d 179 lb 118/78 Negative -?--?-?-?-?-?-?-?-?-?-?-?- Negative 130 -?-?-?-?-?-?-?-?-?-?-?-?- JV- NST is react jose. patient states that she is feeling the baby move more but likes having the NSTs for reassurance. GBS today. no lof or vaginal bleeding. 02/01/25 -?-?-?-?-?-?-?-?-?-?-?-?- 37w 3d 182 lb 8 oz 109/74 -?-?-?-?-?-?-?-?-?-?-?-?- 130 -?-?-?-?-?-?-?-?-?-?-?-?- JV- no lof, vagi nal bleeding, or dec fm. NST reactive. declines pelvic exam JV- no lof, vaginal bleeding , or dec fm. NST reactive. declines pelvic exam- normal growth scan 02/08/25 -?-?-?-?-?-?-?-?-?-?-?-?- 38w 3d 184 lb 2 oz 128/81 Nega tive -?-?-?-?-?-?-?-?-?-?-?-?- Negative 130 36 2 -?-?-?-?-?-?-?-?-?-?-?-?- 60 -2 KW- no vb/ lof/ctx. NST for chronic DFM. US reviewed and discussed IOL at 39 weeks Vital Signs Vital Signs Vital Signs: 02/14/25 07:19 02/14/25 07:19 02/14/25 07:19 Temperature 96.9 F L Temperature Source Temporal Pulse Rate Respiratory Rate 16 Blood Pressure BP Systolic BP Diastolic 02/14/25 07:25 02/14/25 07:25 Temperature Temperature Source Pulse Rate 94 Respiratory Rate Blood Pressure 123/85 H BP Systolic 123 BP Diastolic 85 Weight Weight: 186 lb 4.65 oz Body Mass Index (BMI) 31.9 Labs Labs Labs: Blood Type A POSITIVE Antibody Screen NEGATIVE Hct 36.0 % (37-47) L Hgb 12.3 g/dL (12.0-15.0) Obstetrics Ultrasound Syphilis Total Ab Nonreactive (Nonreactive) Rubella IgG Antibody Reactive (Nonreactive) Hep Bs Antigen Non-Reactive (Nonreactive) Hepatitis C Antibody Non-Reactive (Nonreactive) Chlamydia DNA (JOVANY) Negative (Negative) N.gonorrhoeae DNA (JOVANY) Negative (Negative) HIV 1&2 Antibody Non-Reactive (Nonreactive) Glucose 1 Hr 50 gm 74 mg/dL (70-140) Assessment & Plan (1) Decreased movement affecting management of mother, antepartum: QUALIFIERS: Fetus number: single or unspecified fetus Qualified Code(s): O36.8190 - Decreased movements, unspecified trimester, not applicable or unspecified COMMENT: has anterior placenta and chronic dec fm. starting weekly nsts and may need more than this pending her report of movements. (2) Family history of ovarian cancer: COMMENT: empower screening negative (3) History of recurrent miscarriages: COMMENT: 2 early miscarriages in 2023(nov & February) Vaginal progesterone QHS until 14 wk (4) Supervision of high-risk : QUALIFIERS: Trimester: third trimester Qualified Code(s): O09.93 - Supervision of high risk , unspecified, third trimester COMMENT: PRR , ABDI 02/19/25 girl Janice JULIANA [place], Ty (5) : QUALIFIERS: Weeks of gestation: 38 weeks Qualified Code(s): Z3A.38 - 38 weeks gestation of COMMENT: Anatomy nl, discussed genetic & carrier testing - Declined (6) Encounter for induction of labor: PLAN: Plan iol pit epi prn
[2025-02-14] MEDS: Lactated Ringers 1,000 ML 999 ML IV (10:30)
[2025-02-14] MEDS: fentaNYL-bupivacaine (epidural) 100 ML BAG EPIDURAL (11:21)
[2025-02-14] MEDS: Oxytocin 15 Units/NS 250ml 15 UNITS/250 ML IV.SOLN 83 UNITS IV (13:58)
--- NOTE | 2025-02-14 14:34 | OB.VAGDELI_ITS ---
Assessment & Plan (1) Decreased movement affecting management of mother, antepartum: QUALIFIERS: Fetus number: single or unspecified fetus Qualified Code(s): O36.8190 - Decreased movements, unspecified trimester, not applicable or unspecified COMMENT: has anterior placenta and chronic dec fm. starting weekly nsts and may need more than this pending her report of movements. (2) Family history of ovarian cancer: COMMENT: empower screening negative (3) History of recurrent miscarriages: COMMENT: 2 early miscarriages in 2023(nov & February) Vaginal progesterone QHS until 14 wk (4) Supervision of high-risk : QUALIFIERS: Trimester: third trimester Qualified Code(s): O09.93 - Supervision of high risk , unspecified, third trimester COMMENT: PRR , ABDI 02/19/25 girl Janice PC [place], Ty (5) : QUALIFIERS: Weeks of gestation: 38 weeks Qualified Code(s): Z3A.38 - 38 weeks gestation of COMMENT: Anatomy nl, discussed genetic & carrier testing - Declined (6) Encounter for induction of labor: (7) Vaginal delivery: COMMENT: SM IOL Precip girl Janice Maternal Data Information ABDI Calculator Estimated Delivery Date Method Current WG Current Estimate 02/19/25 LMP (Certain) 39w 2d Other Estimates 02/20/25 Ultrasound #1 39w 1d Vaginal Delivery Maternal Presentation Maternal Presentation: see assessment and plan Vaginal Delivery Information Procedure Performed: Spontaneous Vaginal Delivery Surgeon/Practitioner: Tiff Manzo Pre-Procedure Diagnosis: see assessment and plan Post-Procedure Diagnosis: same Type of anesthesia: Epidural Findings Description of procedure: Patient was comfortbale with her epidurla and the nurse checked her and the baby was delivering spontaneously, delivered SOLA, The head was delivered atraumatically. The anterior and posterior shoulders delivered without complication followed by the rest of the and the infant was placed on the maternal abdomen. physician arrived and cord was still attached, placenta still in situ and attached. Delayed cord clamping was employed for approximately 90 seconds. Cord was clamped and cut and gentle traction was applied to the cord and the placenta delivered spontaneously immediately following it was noted to be intact with three-vessel cord. The perineum and vagina were inspected and was noted to have a first -degree laceration that was repaired in the usual fashion with 3-0 vicryl rapide . EBL was 200. Patient and infant tolerated delivery well. Presentation: Vertex Placental Delivery Description: Spontaneous Specimen collected: Yes Description of specimen(s) removed: placenta Ticket Printer welder fitter gas: No Post Vaginal Deli Medications given after delivery: Other (pitocin) Complication Complications: No Multi Select Codes Urinary/Genital Urinary/Genital CPT Codes: 53108 Vaginal Delivery [facility]
--- NOTE | 2025-02-14 14:34 | DCINST_ITS ---
Discharge Instructions Diet Discharge Diet: No restrictions DC O2, CPAP, BIPAP needs Home O2 Discharge instructions: No Dressing / Incision Discharge Activity: Return to Normal Activity, May Not Drive (while taking narcotic pain medications.) and May Shower May resume sexual activity in: 4-6 weeks Dressing / Incision Call your doctor if your incision/area has: Continuous Slow Oozing, Sudden Increased Bleeding, Increased Pain/ Swelling, Increased Redness and Foul Smelling Discharge Follow Up Care Please Follow Up With: Tiff Manzo MD When: Call [phone] to make an appointment with your doctor in 6 weeks. If you had elevated blood pressure or 4th degree laceration, you will need to be seen in 2 weeks. Test Results: Test results from this visit will be discussed in further detail at your follow- up appointment, if applicable. Discharge Plan Admission Admit Date/Time: 02/14/25 07:18 Attending Provider: Tiff Manzo Primary Care Provider: Care Physician,No Primary Discharge Orders/Prescriptions Prescriptions: No Action Nia PNV 6 mg iron- 833.5 mcg DFE tablet 1 tab PO DAILY Referrals / Follow Up: Care Physician,No Primary [Primary Care Provider] -
[2025-02-14] MEDS: Naproxen 500 MG Tablet PO (17:49)
[2025-02-15 03:37] VITALS: BP 103/80; PULSE 64; RESP 16; TEMP 36.8; O2SAT 100
--- NOTE | 2025-02-15 07:23 | PCM.PN.OB ---
Subjective Subjective Patient doing well without complaints. Tolerating PO. Ambulating and voiding without difficulty. feeding well. Denies chest pain, shortness of breath, calf pain/swelling, fevers, chills, lightheadedness. Objective Data Objective Data Vital Signs: Vital Signs Temp Pulse Resp BP Pulse Ox O2 Del Method 98.3 F 64 16 103/80 100 Room Air 02/15/25 03:37 02/15/25 03:37 02/15/25 03:37 02/15/25 03:37 02/15/25 03:37 02/15/25 03:37 Oxygen Delivery Method Room Air Weight: 186 lb 4.65 oz Body Mass Index (BMI) 31.9 Intake & Output: Intake and Output for Last 24 Hours 02/13/25 02/14/25 02/15/25 23:59 23:59 23:59 Intake Total 2071.66 / 2071.66 Output Total 1800 / 1800 Balance 271.66 / 271.66 Lab / Micro Data 02/14/25 07:40 Labs: Laboratory Results - last 24 hr 02/14/25 07:40: WBC 8.3, RBC 3.93 L, Hgb 12.3, Hct 36.0 L, MCV 91.6, MCH 31.3, MCHC 34.2, RDW Std Deviation 42.3, RDW Coeff of Mariusz 12.8, Plt Count 187, MPV 10.5, Immature Gran % (Auto) 0.700, Neut % (Auto) 72.8 H, Lymph % (Auto) 19.1, [place] % (Auto) 6.2, Eos % (Auto) 0.7, Baso % (Auto) 0.5, Absolute Neuts (auto) 6.0, Absolute Lymphs (auto) 1.58, Nucleated RBC % 0, Syphilis Total Ab Nonreactive, Blood Type A POSITIVE, Antibody Screen NEGATIVE ROS Constitutional Constitutional: Reports systems reviewed and no addt'l complaints, except as documented Cardiovascular Cardiovascular: Reports systems reviewed and no addt'l complaints, except as documented Respiratory/Chest Respiratory/Chest: Reports systems reviewed and no addt'l complaints, except as documented Gastrointestinal Gastrointestinal: Reports systems reviewed and no addt'l complaints, except as documented Physical Exam Const alert, oriented x3 and no apparent distress HEENT Head and Scalp: atraumatic Resp normal respiratory effort GI soft to palpation and non-tender Bimanual Exam - Vag & Uterus: uterus non-tender Uterus Palpation: uterus fundus firm (below Umbilicus) Assessment & Plan (1) Vaginal delivery: COMMENT: SM IOL Precip girl Janice PLAN: Plan s/p PPD # 1 1. routine post delivery care 2. breast feeding- support given 3. rh positive 4. rubella immune
[2025-02-15 08:00] VITALS: BP 106/81; PULSE 89; RESP 16; TEMP 36.6; O2SAT 96
[2025-02-15 13:00] VITALS: BP 111/82; PULSE 88; RESP 16; TEMP 36.6; O2SAT 97
--- NOTE | 2025-02-21 15:51 | NURSING ---
Follow up phone call made, no answer, left voicemail
== END 2025-02-15 14:30 | disposition home or self-care (01) | DRG 807 ==
PROVIDERS: Admitting Provider Obstetrics & Gynecology; Visit Provider Obstetrics & Gynecology
DX: O36.8130 Decreased fetal movements, third trimester, not applicable or unspecified (principal); Z37.0 Single live birth; O70.0 First degree perineal laceration during delivery; Z3A.39 39 weeks gestation of pregnancy; Z87.59 Personal history of other complications of pregnancy, childbirth and the puerperium
CPT/HCPCS: 59025; 59050; 85025; 86780; 86850; 86900; 86901; 99221; G0378